=== PATIENT | female | born 1945 | race Caucasian/White ===

== ENCOUNTER 2021-01-04 20:09 | Emergency (ER) | payer MEDICARE ==
[~2021-01-04] VITALS: Ht 167.6 cm; Wt 104.3 kg
[~2021-01-04 20:09] MED LIST: ATENOLOL50 MG PO; CIPRO500 MG PO; D3 DOTS2000 UNIT PO; HYDROCHLOROTHIA25 MG PO; LEVOTHYROXINE50 MCG PO; LISINOPRIL10 MG PO; OMEPRAZOLE40 MG PO; PRAVASTATIN SOD20 MG PO
[2021-01-04] MEDS ORDERED: MAGNESIUM/ALUMINUM/SIMETHICONE 30 ML UDC ONE (21:38)
[2021-01-04] MEDS ORDERED: LIDOCAINE VISC 2% SOLN 15 ML UDC ONE (21:38)
[2021-01-04] MEDS ORDERED: BELLADONNA ALK/PHENOBARBITAL 5 ML UDC ONE (21:38)
[2021-01-04] MEDS ORDERED: HYDROCODONE/APAP 5MG-325MG TAB PO ONE (22:00)
[2021-01-04] MEDS ORDERED: HYDROCODONE/APAP 5MG-325MG TAB ONE (22:05)
[2021-01-04] MEDS ORDERED: NAMENDA10 MG PO (23:26)
[2021-01-04] MEDS ORDERED: LEVOFLOXACIN250 MG PO (23:26)
[2021-01-04] MEDS ORDERED: ULTRAM50 MG PO (23:26)
[2021-01-04] MEDS ORDERED: PANTOPRAZOLE SO40 MG PO (23:26)
[2021-01-04] MEDS ORDERED: METOPROLOL TART25 MG PO (23:26)
[2021-01-04] MEDS ORDERED: ALLOPURINOL300 MG PO (23:26)
[2021-01-04] MEDS ORDERED: SINGULAIR10 MG PO (23:26)
[2021-01-04] MEDS ORDERED: CARAFATE1 GM PO (23:26)
[2021-01-04] MEDS ORDERED: TYLENOL # 31 EA PO (23:38)
== END 2021-01-05 | disposition home or self-care (01) ==
LOC: FSED 21:30
DX: R51.9 Headache, unspecified (principal); R10.13 Epigastric pain; K29.70 Gastritis, unspecified, without bleeding; I10 Essential (primary) hypertension; E78.5 Hyperlipidemia, unspecified; K21.9 Gastro-esophageal reflux disease without esophagitis; E03.9 Hypothyroidism, unspecified; R94.31 Abnormal electrocardiogram [ECG] [EKG]
CPT/HCPCS: 70450; 71046; 80048; 80053; 80076; 81003; 84484; 85025; 93005; 99284

== ENCOUNTER 2022-01-17 23:50 | Emergency (ER) | payer MEDICARE, OTHER ==
[~2022-01-17] VITALS: Ht 167.6 cm; Wt 102.1 kg
[~2022-01-17 23:50] MED LIST changes: +ALLOPURINOL300 MG PO; +CARAFATE1 GM PO; +LEVOFLOXACIN250 MG PO; +METOPROLOL TART25 MG PO; +NAMENDA10 MG PO; +PANTOPRAZOLE SO40 MG PO; +SINGULAIR10 MG PO; +TYLENOL # 31 EA PO; +ULTRAM50 MG PO
[2022-01-18] MEDS ORDERED: LIDOCAINE 1% W/EPINEPHRINE 20 ML VIAL INJ ONE
[2022-01-18] MEDS ORDERED: ACETAMINOPHEN 325 MG/10 ML UDC ONE (00:13)
[2022-01-18] MEDS ORDERED: BACITRACIN ZINC 0.9GM TP ONE (00:45)
== END 2022-01-18 00:49 | disposition home or self-care (01) ==
LOC: ER 23:55
DX: S81.812A Laceration without foreign body, left lower leg, initial encounter (principal); W26.8XXA Contact with other sharp object(s), not elsewhere classified, initial encounter; Y93.01 Activity, walking, marching and hiking; Y92.89 Other specified places as the place of occurrence of the external cause; G30.9 Alzheimer's disease, unspecified; F02.80 Dementia in other diseases classified elsewhere, unspecified severity, without behavioral disturbance, psychotic disturbance, mood disturbance, and anxiety; I10 Essential (primary) hypertension; E78.5 Hyperlipidemia, unspecified; K21.9 Gastro-esophageal reflux disease without esophagitis; E03.9 Hypothyroidism, unspecified; M10.9 Gout, unspecified
CPT/HCPCS: 99283